=== PATIENT | female | born 1970 | race Caucasian/White ===

== ENCOUNTER → 2018-04-11 | Outpatient (CLI) | payer OTHER ==
--- NOTE | 2018-04-11 11:59 | DIAGNOSTIC IMAGING REPORT ---
PELVIC ULTRASOUND, TRANSABDOMINAL AND TRANSVAGINAL HISTORY: PCB POST COITAL BLEEDING COMPARISON: None. FINDINGS: Uterus: 8.6 x 3.8 x 5.3 cm. Small to both the and cysts. There is poor visualization of the uterus on the transvaginal scanning due to the positioning of the uterus. Endometrial stripe: The endometrial stripe is difficult to define but appears to measure 1.4 cm in thickness. Right ovary: Obscured by overlying bowel gas. Left ovary: There is a 1.8 x 1.7 x 1.2 cm cystic structure within the left adnexa. This is likely ovarian. However, the left ovary is not well-visualized due to overlying bowel gas. Miscellaneous:No pelvic free fluid. IMPRESSION: 1. Overall, suboptimal evaluation of the uterus and ovaries due to the overlying bowel gas and positioning of the uterus. 2. Endometrial stripe is difficult to define but appears to measure 1.4 cm in thickness. This would be considered the upper limits of normal on a premenopausal patient. 3. Small cystic structure within the left adnexa which could be ovarian. However the left ovary is not well visualized. 4. The right ovary is obscured by overlying bowel gas Electronically signed by: Milton Carlos M.D. 04/11/2018 11:58 AM Dictated Date/Time: 04/11/2018 11:52 AM
== END | disposition home or self-care (01) ==
LOC: C.ULTR 11:06
PROVIDERS: ATTEND Family Medicine
DX: N93.0 Postcoital and contact bleeding (principal)